=== PATIENT | female | born 1975 ===

== ENCOUNTER → 2025-02-05 08:31 | Outpatient (CLI) | payer OTHER ==
[2025-02-05 09:21] LABS: PH,URINE 7.5 (5.0-8.0); URINE APPEARANCE Clear; URINE BILIRRUBIN Negative (NEGATIVE); URINE BLOOD Large; URINE COLOR Yellow; URINE GLUCOSE Negative (NEGATIVE); URINE KETONE Negative (NEGATIVE); URINE LEUKOCYTE Negative; URINE NITRATE Negative; URINE PROTEIN Negative (NEGATIVE); URINE UROBILINOGEN 0.2 E.U./dl
[2025-02-05 09:26] LABS: URINE BACTERIA 572.5 uL (0.0-1933); URINE EPITHELIAL CELLS 7.2 uL (0.0-38.8); URINE RBC 42.8 uL (0.0-20.8)
[2025-02-05 09:28] LABS: HEMATOCRIT 43.6 % (36.0-45.00); MEAN CELL VOLUME 94.2 fL (80.00-100.00); MEAN CORPUSCULAR HEMOGLOBIN 32.5 pg (27.00-32.0); MEAN CORPUSCULAR HGB CONC 34.5 g/dl (32.0-36.0); PLATELET COUNT 232 K/uL (150-450); RED BLOOD COUNT 4.63 M/uL (4.00-6.00); RED CELL DISTRIBUTION WIDTH 13.4 % (11.5-14.5)
[2025-02-05 09:34] LABS: URINE WBC 1.1 uL (0.0-23.2)
[2025-02-05 10:31] LABS: ALBUMIN 3.9 gm/dL (3.4-5.0); ALKALINE PHOSPHATASE 71 U/L (50-136); ALT/SGPT 36 U/L (12-78); ANION GAP 11 (10.0-20.0); AST/SGOT 21 U/L (15-37); BILIRUBIN TOTAL 0.92 mg/dL (0.3-1.2); BLOOD UREA NITROGEN 8 mg/dL (7-18); BUN CREA RATIO 15 (7.0-25.0); CALCIUM 9.3 mg/dL (8.5-10.1); CARBON DIOXIDE 30 mEq/L (21-32); CHLORIDE 105 mmol/L (98-107); CHOL HDL RATIO 2.4 (0-5.0); CHOLESTEROL 211 mg/dL (0-200); CREATININE SERUM 0.54 mg/dL (0.55-1.02); GLOBULINA 3.1 G/DL (2.4-3.5); GLUCOSE FASTING 82 mg/dL (65-100); HDL 87 mg/dl (40-60); LDL 100 mg/dl (0-130); OSMOLALITY SERUM 281 MOSM/KG (275-295); POTASSIUM 4.12 mEq/L (3.5-5.1); SODIUM 142 mmol/L (136-145); T4 FREE 0.89 NG/ML (0.76-1.46); TRIGLYCERIDES 119 mg/dL (0-150); TSH 0.771 uIU/mL (0.358-3.74); VLDL 23 (0-39)
[2025-02-05 10:39] LABS: C-REACTIVE PROTEIN < 0.29 MG/DL (0.00-0.29)
[2025-02-05 11:47] LABS: CORTISOL 11.32 ug/dl; VITAMIN D3 25 HYDROXY 16.54 ng/ml (30-120)
[2025-02-06 13:06] LABS: ESTRADIOL SERUM < 5.0 pg/mL (.); FOLLICLE STIMULATING HORMONE 46.2 mIU/mL (.); PROGESTERONA < 0.1 ng/mL (.); TESTOSTERONE,TOTAL < 3.00 ng/dL (4-50)
[2025-02-07 17:10] LABS: T T < 3 ng/dL (4-50); test free 0.2 pg/mL (0.0-4.2)
== END | disposition home or self-care (01) ==
LOC: LAB 08:31
PROVIDERS: ATTEND General Practice
DX: D64.9 Anemia, unspecified (principal); E78.9 Disorder of lipoprotein metabolism, unspecified; E66.3 Overweight; E55.9 Vitamin D deficiency, unspecified; R73.03 Prediabetes; R94.6 Abnormal results of thyroid function studies; R03.0 Elevated blood-pressure reading, without diagnosis of hypertension

== ENCOUNTER 2025-10-18 10:51 | Outpatient (CLI) | payer OTHER ==
[2025-10-18 11:11] LABS: BASO % 0.8 % (0.1-1.2); EOS # 0.36 (0.04-0.54); EOS % 3.1 % (0.7-7.0); LYMPH # 1.23 (1.18-3.74); LYMPH % 10.5 % (19.3-53.1); MEAN PLATELET VOLUME 10.40 fl (9.4-12.4); MONO # 0.92 (0.24-0.82); MONO % 7.8 % (4.7-12.5); NEUT # 9.10 (1.56-6.13); NEUT % 77.5 % (34.0-71.1); RED CELL DISTRIBUTION WIDTH 12.3 % (11.6-14.4)
[2025-10-18 11:28] LABS: COVID-19 AG NEGATIVE (NEGATIVE)
[2025-10-18 11:49] LABS: MYCOPLASMA PNEUMONIAE IGM REACTIVE (NO REACTIVE)
== END 2025-10-18 11:02 | disposition home or self-care (01) ==
LOC: LAB 10:51
DX: A49.3 Mycoplasma infection, unspecified site (principal); A49.2 Hemophilus influenzae infection, unspecified site; Z20.822 Contact with and (suspected) exposure to COVID-19; R05.8 Other specified cough